=== PATIENT | female | born 1990 | race Caucasian/White ===

== ENCOUNTER 2021-10-31 08:14 | Outpatient (CLI) | payer MEDICARE, SELFPAY ==
--- NOTE | ~2021-10-31 | US_ITS ---
US abdomen complete DATE: 10/31/2021 09:37 INDICATION: Epigastric abdominal pain TECHNIQUE: Real-time imaging, Doppler analysis of the abdomen COMPARISON: None FINDINGS: No hepatic or pancreatic space-occupying mass lesion is detected. Normal hepatopedal portal venous flow direction. There are numerous filling defects in the dependent aspect of the gallbladder with posterior shadowin g consistent with cholelithiasis. No gallbladder wall thickening. Negative sonographic Hare's sign. The common bile duct measures 4 mm, normal. Normal caliber of the abdominal aorta. The inferior vena cava is unremarkable. The kidneys measure approximately 11 cm length. No renal mass lesion or hydronephrosis. Normal splenic size. IMPRESSION: Cholelithiasis Reviewed, dictated and finalized at Location [facility]. Reviewed, dictated and finalized at location B. ENTARY ASSISTANT TEACHER IMPRESSION: Cholelithiasis
== END 2021-10-31 08:15 | disposition home or self-care (01) ==
PROVIDERS: PCP Family Medicine; Visit Provider Family Medicine
DX: R10.13 Epigastric pain (principal); R14.0 Abdominal distension (gaseous); K80.20 Calculus of gallbladder without cholecystitis without obstruction
CPT/HCPCS: 76700

== ENCOUNTER 2021-11-23 08:00 | Outpatient (CLI) | payer MEDICARE, SELFPAY ==
[2021-11-23 08:58] LABS: Alanine Aminotransferase 14 U/L (4-35); Albumin Level 4.1 g/dL (3.5-5.1); Alkaline Phosphatase 77 U/L (38-126); Amylase 97 U/L (30-110); Aspartate Amino Transferase 22 U/L (14-36); Bilirubin,Total 0.3 mg/dL (0.2-1.3); Lipase 78 U/L (23-300)
== END 2021-11-23 08:01 | disposition home or self-care (01) ==
LOC: ANHSURGERY 08:04
PROVIDERS: PCP Family Medicine; Visit Provider Surgery
DX: Z01.818 Encounter for other preprocedural examination (principal); K80.20 Calculus of gallbladder without cholecystitis without obstruction
CPT/HCPCS: 36415; 80076; 82150; 83690; 86850; 86900; 86901

== ENCOUNTER 2021-11-27 00:47 | Day surgery (SDC) | payer MEDICARE, SELFPAY ==
[2021-11-20 14:34] VITALS: BMI 19.0
--- NOTE | 2021-11-20 14:43 | SUR.PREOP ---
Report to the Outpatient Waiting Room, entrance under the green pavilion located off [facility], at time _1000 on date _11/27/21 . OR Time: _1200 . - You and your visitor will be asked a series of questions to screen for COVID 19 for your protection. - A mask is required within the hospital. Preoperative COVID Testing Requirements: No COVID Test needed if: (proof is required; if not received patient will have Rapid Test prior to entry) - Patient has received COVID Vaccine at least 14 days prior to procedure date or - Patient has positive COVID test result within last 90 days of surgery date. COVID Test needed if above criteria is not met If not COVID vaccinated a COVID test must be conducted within 72 hours of surgery and patient is asked to isolate self from time of testing until procedure. You will go to the [facility] for your COVID testing. The [facility] site is located at the corner of [address] [facility]. You will only be called if COVID results are positive and your surgeon may reschedule your elective surgery date. Patients may have clear liquids (water, carbonated beverages, clear teas, apple juice) until 3 hours prior to surgery with a maximum of 20 ounces. - No food from midnight until time of surgery - Infants may have breast milk until 4 hours before surgery, infant formula 6 hours prior to surgery. - Children will be allowed to drink immediately following surgery. If applicable, please bring a bottle or sippy cup to assist with drinking. Juice, water, soda, and popsicles are readily available. For infants on formula, please bring formula the day of surgery. Pacifiers are allowed. Take the following medications with a SIP of water the morning of surgery: ___sertaline,venlafexine,methylphenidate Medications to discontinue per physician ___vitamin Date to take last dose__11/24/21 Please no make-up, nail colombian, hairspray, perfume, deodorant, or body powder the day of surgery. No jewelry (including any body piercings) or valuables the day of surgery, leave them at home. Please take a shower or bath the night before, or the morning of, surgery with an antibacterial soap. Wear comfortable, loose fitting clothing. Children are encouraged to wear pajamas. - Jewelry must be removed prior to entering the operating room. Rings and piercings that are not removed may be cut off. - The hospital will not accept responsibility for valuables. HIBICLENS SHOWER AM OF SURGERY - Please leave all valuables, including medications, at home the day of surgery. If you are going home after surgery, a licensed flatbed truck driver must drive you home. - NO public transportation without another adult. - We recommend that an adult stay with you for 24 hours following discharge. - We also recommend that you do not drive, make important decision, drink alcoholic beverages, or take any drugs that were not prescribed by your health care provider for at least 24 hours after your discharge time. For Pediatric surgeries, we recommend two adults accompany the child home (only one inside the building at this time). One visitor will be allowed to accompany the patient into the hospital. Patients visitor will be instructed to remain with patient at all times or leave the building. We will allow the visitor to come back to the postoperative area when patient is ready. Follow any additional instructions given to you from your surgeon. Telephone instructions given to samanta vargas_and asked if any additional questions and then verbalized understanding. Patient advised to call surgeon office or pre surgery nurse liaison [phone] if any additional questions.
[2021-11-27] VITALS (8 sets, daily range): BP systolic 99–121; BP diastolic 51–81; PULSE 66–90; RESP 12–16; TEMP 36.3–37.4; O2SAT 99–100
--- NOTE | 2021-11-27 07:58 | P.PNAN_ITS ---
Anes - Initial Pre Proc Eval Procedure: Operation Date: 11/27/21 12:00 Proposed Procedures p Laparoscopic Cholecystectomy, Possible Open - Bhupendra Nelson DO Date/Time: 11/27/21 07:58 Surgeon: Bhupendra Nelson DO Pre Op Diagnosis: Symptomatic Choleithiasis Patient Data Age: 31 Gender: F Height: 1.73 m Weight: 56.81 kg Allergies Allergy/AdvReac Type Severity Reaction Status Date / Time No Known Allergies Allergy Verified 11/27/21 10:17 Home Medications Medication Instructions Recorded Confirmed Type benztropine 0.5 mg tablet 0.5 mg PO DAILY 01/24/21 11/27/21 History methylphenidate HCl 10 mg tablet 10 mg PO BID 01/24/21 11/27/21 History sertraline 100 mg tablet 100 mg PO DAILY 01/24/21 11/27/21 History trazodone 150 mg tablet 150 mg PO QHS 01/24/21 11/27/21 History venlafaxine 75 mg tablet 75 mg PO BID 01/24/21 11/27/21 History esomeprazole magnesium 40 mg 40 mg PO DAILY #90 cap 09/06/21 11/27/21 Rx capsule,delayed release [id number]-lutein 1 tablet PO DAILY 11/20/21 11/27/21 History [Centrum Silver Women] Patient hx anesthesia problems: none Family hx anesthesia problems: none Results Review: All pre-operative results and documents have been reviewed as part of the pre-operative evaluation. [facility] Past Medical History Medical History (Updated 11/27/21 @ 11:14 by Zacarias Lazaro DO) Anxiety GERD (gastroesophageal reflux disease) High cholesterol Surgical History Surgical History [place] teeth extracted Family History Family History Father Alcoholism Cancer Depression Cerebrovascular accident Mother Hypertension Sibling Depression Grandparent Cancer Grandparent Cancer Diabetes mellitus Depression Social History Social History Smoking status: Never smoker Alcohol intake: current Substance use: current Other substance usage details: hemp gummies,weekly Living arrangements: with family Gender identity (if verbalized by the patient): Female Spiritual care concerns: No Anes - Eval Final PreProcedure Day of Procedure 11/27/21 07:58 Patient weight: thin Heart: regular rate and rhythm Lungs: clear to auscultation and normal air movement Airway: Mallampati scale class II Neurological: alert and oriented Last oral intake: >/= 8 hours ASA classification: II Emergent: no Anesthetic plan: proceed Anesthesia type and monitoring: general ETT and standard monitoring Results Review: All pre-operative results and documents have been reviewed as part of the pre-operative evaluation. Informed Consent: The patient's anesthetic plan and its attendant risks and benefits were discussed with the patient/family/POA. Questions were solicited and answers provided to the satisfaction of the patient/family/POA.
[2021-11-27] MEDS: ACETAMINOPHEN 500 MG TABLET 1000 MG PO (10:27)
[2021-11-27] MEDS: LACTATED RINGERS 1,000 ML 30 ML IV CONT ×2 (10:56→12:37)
[2021-11-27] MEDS: KETOROLAC 15 MG/ML VIAL (*BKC) IV PUSH (10:57)
--- NOTE | 2021-11-27 11:31 | WPDHPUPDATE1 ---
History and Physical Update Update Date/Time: 11/27/21 11:31 History and Physical has been reviewed, including an updated exam of the patient. There are NO changes in the patient's condition. Risks, benefits, and alternatives have been discussed and questions answered. Patient agrees to proceed with procedure.
[2021-11-27] MEDS: ceFAZolin 2 GM/D5W 50 ML 2 GM/50 ML BAG IVPB (11:49)
[2021-11-27] MEDS: BUPIVACAINE/EPINEPHRINE 0.25% 10 ML VIAL 30 ML INFILTRATE (12:12)
--- NOTE | 2021-11-27 12:30 | W.PM.PROC2 ---
Procedure Note - Detailed Date of Procedure 11/27/21 Pre-op Diagnosis Symptomatic Choleithiasis Post-op Diagnosis same Procedure Performed Laparoscopic cholecystectomy Surgeon Bhupendra Nelson, DO Anesthesia general and local (0.5% bupivacaine) Indications This is a 31-year-old woman who presents with intermittent upper abdominal pain that started about 4 months ago. She has continued to have these episodes of pain after eating. Gallbladder ultrasound showed evidence of cholelithiasis. Discussions were made with the patient about treatment options and decision was made to proceed with laparoscopic cholecystectomy, possible open. Findings Laparoscopic cholecystectomy was performed. The patient's gallbladder appeared grossly normal. There were no adhesions or signs of acute cholecystitis. The cystic duct appeared normal in size. The gallbladder was removed and sent to the lab for pathology. Description of Procedure Procedure as well as risks, benefits, and alternatives were discussed with patient. Written consent was obtained and placed in chart prior to procedure. The patient was brought back to surgical suite. Patient was placed in supine position on operating table. Time-out was done to confirm patient and procedure. Patient was then intubated by the anesthesia department. Abdomen was prepped and draped in sterile fashion using chlorhexidine prep. 0.5% bupivacaine with epinephrine was infiltrated at each site of incision. An 11 millimeter vertical incision was made at the inferior portion of the umbilicus using a 15 blade scalpel. Blunt dissection was carried down to the linea alba. The linea alba was then incised using a 15 blade scalpel. The peritoneum was then bluntly entered. An 11 millimeter trocar was inserted and carbon dioxide insufflation was used to create a pneumoperitoneum. The camera was inserted and the abdomen was inspected. The patient was placed in reverse Trendelenberg position and rotated slightly to the left. A 5 millimeter incision was made in the epigastric region, and a 5 millimeter trocar was inserted under direct visualization. Two 5 millimeter incisions were made in the right upper quadrant, and two 5 millimeter trocars were inserted under direct visualization. The gallbladder was identified and grasped at the fundus and retracted superiorly. It was then grasped at the infundibulum retracted laterally. Careful dissection around the neck of the gallbladder was performed using blunt dissection with a [place] grasper and hook electrocautery. The cystic duct was identified, and a window was created behind it. The cystic artery was also identified and a window was created behind it. The critical view of safety was identified, visualizing the cystic duct running directly into the neck of the gallbladder, and the cystic artery running directly into the wall of the gallbladder. A 5 millimeter clip buttonholer was then used to place 2 clips proximally and 1 clip distally on both the cystic duct and cystic artery. They were then both transected using endoscopic scissors. Once safely away from the marjan hepatitis, the gallbladder was dissected free from the liver bed using hook electrocautery. Hemostasis was achieved along the way. The gallbladder was removed completely and then removed through the umbilical port. The liver bed was then inspected. Hemostasis appeared adequate, and our clips appeared secure. The area was gently irrigated with sterile saline. No other abnormalities were seen. The patient was flattened out in bed, and 1 final inspection was made around the abdominal cavity. The ports were then removed under direct visualization, the camera was removed, and the pneumoperitoneum was released. The fascia of the umbilical incision was approximated using an 0 Vicryl oxgwna-[id number] suture. The skin of the incisions was approximated using 4-0 Monocryl subcuticular sutures. Exofin glue was applied on top. The p
== END 2021-11-27 14:40 | disposition home or self-care (01) ==
PROVIDERS: PCP Family Medicine; Visit Provider Surgery
PROC: 0FT44ZZ Resection of Gallbladder, Percutaneous Endoscopic Approach (ICD-10-PCS; CPT 47562; principal; 2021-11-27 12:00)
DX: K80.10 Calculus of gallbladder with chronic cholecystitis without obstruction (principal); K21.9 Gastro-esophageal reflux disease without esophagitis; J45.909 Unspecified asthma, uncomplicated; E78.00 Pure hypercholesterolemia, unspecified; F41.9 Anxiety disorder, unspecified
CPT/HCPCS: 47562; 36415; 80076; 82150; 83690; 86850; 86900; 86901; 88304; A9270; J0690; J1100; J1170; J1885; J2250; J2405; J2704; J2710; J3010; J7030; J7120

== ENCOUNTER 2022-06-25 00:14 | Day surgery (SDC) | payer MEDICARE, SELFPAY ==
[2022-06-07 13:48] VITALS: BMI 22.1
[2022-06-25 12:32] VITALS: BP 111/74; PULSE 84; RESP 18; TEMP 36.8; O2SAT 100; BMI 21.2
--- NOTE | 2022-06-25 12:34 | WPDANESEPPF ---
Anes - Initial Pre Proc Eval Procedure: Operation Date: 06/25/22 13:00 Proposed Procedures p Esophagogastroduodenoscopy & Colonoscopy - Sebastián Forman MD Date/Time: 06/25/22 12:34 Surgeon: Sebastián Forman MD Pre Op Diagnosis: GERD, IBS-constipation Patient Data Age: 32 Gender: F Height: 1.73 m Weight: 63.4 kg Last Vital Signs Temp 36.8 C 06/25/22 12:32 Pulse 84 06/25/22 12:32 Resp 18 06/25/22 12:32 BP 111/74 06/25/22 12:32 Pulse Ox 100 06/25/22 12:32 O2 Del Method Room Air 06/25/22 12:32 Allergies Allergy/AdvReac Type Severity Reaction Status Date / Time No Known Allergies Allergy Verified 06/25/22 12:29 Home Medications Medication Instructions Recorded Confirmed Type benztropine 0.5 mg tablet 0.5 mg PO DAILY 01/24/21 06/25/22 History methylphenidate HCl 10 mg tablet 10 mg PO BID 01/24/21 06/25/22 History (Ritalin) trazodone 150 mg tablet 150 mg PO QHS 01/24/21 06/25/22 History venlafaxine 75 mg tablet 75 mg PO BID 01/24/21 06/25/22 History sertraline 100 mg tablet (Zoloft) 200 mg PO DAILY 01/16/22 06/25/22 History linaclotide 290 mcg capsule 290 mcg PO QAM #90 caps 05/01/22 06/25/22 Rx (Linzess) omeprazole 40 mg capsule,delayed 40 mg PO DAILY #90 caps 06/13/22 06/25/22 Rx release sucralfate 1 gram tablet (Carafate) 1 g PO .COMPLEX #120 tabs 06/13/22 06/25/22 Rx Patient hx anesthesia problems: none Family hx anesthesia problems: none Results Review: All pre-operative results and documents have been reviewed as part of the pre-operative evaluation. [facility] Past Medical History Medical History Abdominal pain Anxiety GERD (gastroesophageal reflux disease) High cholesterol Irritable bowel syndrome with constipation Symptomatic cholelithiasis lap christen 11.27.21 Surgical History Surgical History History of laparoscopic cholecystectomy 11.27.21 [place] teeth extracted Family History Family History Father Alcoholism Cancer Depression Cerebrovascular accident Mother Hypertension Sibling Depression Grandparent Cancer Grandparent Cancer Diabetes mellitus Depression Social History Social History Smoking status: Never smoker Alcohol intake: current Substance use: never Substance use type: does not use Living arrangements: with family Gender identity (if verbalized by the patient): Female Spiritual care concerns: No Anes - Eval Final PreProcedure Day of Procedure 06/25/22 12:34 Patient weight: normal Heart: regular rate and rhythm Lungs: clear to auscultation Airway: Mallampati scale class II Neurological: alert and oriented Last oral intake: >/= 8 hours ASA classification: II Emergent: no Anesthesia type and monitoring: general GIVS and standard monitoring Results Review: All pre-operative results and documents have been reviewed as part of the pre-operative evaluation. Informed Consent: The patient's anesthetic plan and its attendant risks and benefits were discussed with the patient/family/POA. Questions were solicited and answers provided to the satisfaction of the patient/family/POA.
[2022-06-25] MEDS: LACTATED RINGERS 1,000 ML 150 ML IV CONT (12:35)
--- NOTE | 2022-06-25 12:40 | PM.HPGS ---
History of Present Illness History of Present Illness Consent: Risks, benefits, and alternatives have been discussed and questions answered. Patient agrees to proceed with procedure. Chief complaint: GERD, IBS-constipation Narrative: Sue Jaramillo is a 32 year old female here for egd and colonoscopy. She has chronic constipation but over last few months with bloating and gas pain in luq, diagnosed with IBS by primary, better with linzess, also started using omeprazole and carafate that helped some, no previous scopes. Review of Systems Constitutional: Constitutional: Denies headache(s) and Denies weakness Eyes: Eyes: Denies blurry vision ENT: Reports Normal hearing present, Denies headache(s) and Denies neck pain Cardiovascular: Cardiovascular: Denies chest pain and Denies dyspnea Respiratory: Respiratory: Denies dyspnea Gastrointestinal: Gastrointestinal: Reports no additional gastrointestinal complaints Genitourinary: Genitourinary: Denies dysuria Musculoskeletal: Musculoskeletal: Denies neck pain Integumentary/Breasts: Skin/Breast: Denies dry skin Neurologic: Reports Normal hearing present, Denies headache(s) and Denies weakness Psychiatric: Psychiatric: Denies anxiety Endocrine: Endocrine: Denies change in body appearance Hematologic/Lymphatic: Hematologic/Lymphatic: Denies easy bleeding Allergic/Immunologic: Allergic/Immunologic: Denies urticaria PMFSH Past Medical History Medical History Abdominal pain Anxiety GERD (gastroesophageal reflux disease) High cholesterol Irritable bowel syndrome with constipation Symptomatic cholelithiasis lap christen 11.27.21 Surgical History Surgical History History of laparoscopic cholecystectomy 11.27. [place] teeth extracted Family History Family History Father Alcoholism Cancer Depression Cerebrovascular accident Mother Hypertension Sibling Depression Grandparent Cancer Grandparent Cancer Diabetes mellitus Depression Social History Social History Smoking status: Never smoker Alcohol intake: current Substance use: never Substance use type: does not use Living arrangements: with family Gender identity (if verbalized by the patient): Female Spiritual care concerns: No Meds Home Medications and Allergies Home Medications Medication Instructions Recorded Confirmed Type benztropine 0.5 mg tablet 0.5 mg PO DAILY 01/24/21 06/25/22 History methylphenidate HCl 10 mg tablet 10 mg PO BID 01/24/21 06/25/22 History (Ritalin) trazodone 150 mg tablet 150 mg PO QHS 01/24/21 06/25/22 History venlafaxine 75 mg tablet 75 mg PO BID 01/24/21 06/25/22 History sertraline 100 mg tablet (Zoloft) 200 mg PO DAILY 01/16/22 06/25/22 History linaclotide 290 mcg capsule 290 mcg PO QAM #90 caps 05/01/22 06/25/22 Rx (Linzess) omeprazole 40 mg capsule,delayed 40 mg PO DAILY #90 caps 06/13/22 06/25/22 Rx release sucralfate 1 gram tablet (Carafate) 1 g PO .COMPLEX #120 tabs 06/13/22 06/25/22 Rx Allergies Allergy/AdvReac Type Severity Reaction Status Date / Time No Known Allergies Allergy Verified 06/25/22 12:29 Vital Signs Vital Signs - 24 hr 06/25/22 12:32 Temperature 98.2 F Pulse Rate 84 Respiratory Rate 18 Blood Pressure 111/74 Pulse Oximetry 100 Oxygen Delivery Room Air Exam Const: General: comfortable and no acute distress HENMT: General nose exam: Normal nares present Eyes: General: appearance normal, both eyes and all related structures Neck: Neck: no JVD Resp: Auscultation: clear to auscultation bilaterally Cardio: Rate: regular rate Rhythm: regular rhythm GI: Inspection: non-distended GI Palp: Yes Soft to palpation Skin: General skin exam: normal color Neuro: Genera
--- NOTE | 2022-06-25 12:54 | SUR.OPER ---
EGD: [id number] COLON: [id number]
[2022-06-25 13:15] VITALS: BP 106/65; PULSE 75; RESP 17; O2SAT 100
[2022-06-25 13:25] VITALS: BP 115/69; PULSE 71; RESP 17; O2SAT 100
[2022-06-25 13:35] VITALS: BP 113/77; PULSE 66; RESP 13; O2SAT 100
== END 2022-06-25 13:54 | disposition home or self-care (01) ==
PROVIDERS: PCP Family Medicine; Visit Provider Internal Medicine Gastroenterology
PROC: 0DJ08ZZ Inspection of Upper Intestinal Tract, Via Natural or Artificial Opening Endoscopic (ICD-10-PCS; CPT 43235; principal; 2022-06-25 13:00)
DX: Z12.11 Encounter for screening for malignant neoplasm of colon (principal); R10.13 Epigastric pain; K64.8 Other hemorrhoids; R14.0 Abdominal distension (gaseous); K29.50 Unspecified chronic gastritis without bleeding; K21.9 Gastro-esophageal reflux disease without esophagitis; K58.1 Irritable bowel syndrome with constipation; F41.9 Anxiety disorder, unspecified; E78.00 Pure hypercholesterolemia, unspecified; R10.12 Left upper quadrant pain
CPT/HCPCS: 43239; G0121; 88305; J2704; J7120

== ENCOUNTER 2022-07-01 15:07 | Emergency (ER) | payer MEDICARE, SELFPAY ==
--- NOTE | ~2022-07-01 | CT_ITS ---
EXAMINATION: CT abdomen pelvis w con DATE: 07/01/2022 19:10 INDICATION: epigastric pain TECHNIQUE: Computed tomography (CT) of the abdomen and pelvis was performed with 100 mL Omnipaque-350 intravenous contrast. Automated exposure control and iterative reconstruction technique were employe d. The dose-length product was 274.52 mGy-cm. COMPARISON: None. FINDINGS: Lower thorax: Unremarkable Liver: Normal. Biliary/Gallbladder: Gallbladder is normal. No bile duct dilation. Pancreas: No mass or duct dilation. Spleen: Normal. Adrenals:No mass. Kidneys: No mass, stone, or hydronephrosis. GI tract: Antral wall edema. No small or large bowel dilation. Appendix not confidently visualized du e to the paucity of abdominal fat and closely applied bowel loops in the right lower quadrant. No inf lammatory change detected in the right lower quadrant. Mesentery/Peritoneum: No ascites, mass, or free air. Retroperitoneum: No mass. Pelvis: Pelvic organs are within normal limits. Soft Tissues: Soft tissues and body wall unremarkable. Bones: No acute osseous finding. IMPRESSION: Antral gastritis. Otherwise no acute abdominopelvic process detected. Reviewed, dictated and finalized at location K.
[2022-07-01 15:09] VITALS: BP 138/81; PULSE 93; RESP 18; TEMP 36.7; O2SAT 100
[2022-07-01 15:32] LABS: Appearance Urine Clear (Clear); Bilirubin Urine Negative (Negative); Blood Urine Negative (Negative); Color Urine Yellow (Yellow); Glucose Urine UA Negative (Negative); Ketones Urine Negative (Negative); Leukocyte Esterase Ur Negative LEU/UL (Negative); Nitrate Urine Negative (Negative); Protein Urine Negative (Negative); Specific Grav Ur 1.015 (1.001-1.035); Urobilinogen Urine 0.2 mg/dL (<2.0); pH Urine 8.5 (5.0-9.0)
[2022-07-01 15:34] LABS: Add Urine Microscopic? NO
--- NOTE | 2022-07-01 15:39 | ED.GENADULT ---
HPI - General Adult General Chief complaint: Abdominal Pain Stated complaint: ABD Pain x2-3 weeks Time Seen by Provider: 07/01/22 15:14 History of Present Illness HPI narrative: 32-year-old female presenting to the emergency department for evaluation of multiple weeks of epigastric pain. Patient has had follow-up with GI and recently had an upper and lower no acute abnormalities. patient follows up with Dr. Dang for GI. Patient states that the pain began to worsen today. Patient describes epigastric pain. Since arriving to the emergency department patient states pain has begun to improve. Related Data Home Medications Medication Instructions Recorded Confirmed benztropine 0.5 mg tablet 0.5 mg PO DAILY 01/24/21 06/25/22 methylphenidate HCl 10 mg tablet 10 mg PO BID 01/24/21 06/25/22 (Ritalin) trazodone 150 mg tablet 150 mg PO QHS 01/24/21 06/25/22 venlafaxine 75 mg tablet 75 mg PO BID 01/24/21 06/25/22 sertraline 100 mg tablet (Zoloft) 200 mg PO DAILY 01/16/22 06/25/22 Allergies Allergy/AdvReac Type Severity Reaction Status Date / Time No Known Allergies Allergy Verified 06/25/22 12:29 Review of Systems Review of Systems: CONSTITUTIONAL: Denies fever, chills, or sweats. EYES: Denies visual changes, redness, or discharge. ENT: Denies rhinorrhea, congestion, sore throat, or otalgia. CARDIOVASCULAR: Denies chest pain, palpitations, or edema. RESPIRATORY: Denies cough or dyspnea. GASTROINTESTINAL: See HPI GENITOURINARY: Denies dysuria or hematuria. SKIN: Denies rash or itching. MUSCULOSKELETAL: Denies back pain, joint pain, or myalgia. NEUROLOGIC: Denies headache, numbness, or weakness. PSYCHIATRIC: Denies anxiety or depression. [facility] Past Medical History Medical History Abdominal pain Anxiety GERD (gastroesophageal reflux disease) High cholesterol Irritable bowel syndrome with constipation Symptomatic cholelithiasis lap christen 11.27.21 Surgical History Surgical History History of laparoscopic cholecystectomy 11.27.21 [place] teeth extracted Family History Family History Father Alcoholism Cancer Depression Cerebrovascular accident Mother Hypertension Sibling Depression Grandparent Cancer Grandparent Cancer Diabetes mellitus Depression Social History Social History Smoking status: Never smoker Alcohol intake: current Substance use: never Substance use type: does not use Gender identity (if verbalized by the patient): Female Spiritual care concerns: No Exam Narrative: APPEARANCE: Well appearing, no pain, no distress, well-nourished. HEAD: normocephalic, atraumatic. EYES: PERRLA/EOMI, conjunctivae clear. NOSE: Normal no drainage THROAT: Pharynx clear, no exudate. NECK: Supple. No adenopathy, no masses. RESPIRATORY: Airway patent, respirations nonlabored. Clear to auscultation bilaterally, no rales, rhonchi, wheezing. CARDIOVASCULAR: Regular rate and rhythm without murmurs rubs or gallops. ABDOMINAL: Epigastric tenderness to palpation MUSCULOSKELETAL: Moves all extremities. Strength/ROM intact, No edema, No calf tenderness. NEURO: Alert. Cranial nerves II through XII intact. Good gait. Good coordination SKIN: Warm, dry. Normal Color PSYCHIATRIC: Normal affect/mood. Course Course Emergency Course: Patient did have recent upper and lower scopes by GI. No gastritis was noticed on the EGD. Patient did have evidence of antral gastritis on CT scan today. Patient was treated with GI cocktail, Protonix and was instructed to continue taking her Carafate. Patient was also encouraged to seek follow-up with Dr. Dang again. All question concerns were addressed. Vital Signs Vital signs: Vital Signs Temperature 98.0 F 07/01/22 15:09 Pulse Rate 93 10
[2022-07-01 15:45] LABS: Basophils Percent Auto 0.4 % (0.2-1.2); Eosinophils Percent Auto 0.5 % (0-4.4); Hematocrit 36.4 % (37.0-47.0); Hemoglobin 11.9 g/dL (12.0-15.0); Immature Granulocyte Absolute 0.02 K/mm3 (0.00-0.031); Immature Granulocyte Percent A 0.4 % (0-0.5); Lymphocytes Absolute Auto 1.42 K/mm3 (0.9-3.2); Lymphocytes Percent Auto 25.5 % (18.3-44.2); Mean Corpuscular HGB Conc 32.7 g/dl (32-36); Mean Corpuscular Hemoglobin 30.1 pg (26-34); Mean Corpuscular Volume 91.9 fl (80-100); Mean Platelet Volume 10.6 fl (7.4-10.4); Monocytes Absolute Auto 0.4 K/mm3 (0.1-0.6); Monocytes Percent Auto 6.6 % (2.6-8.5); Neutrophils Absolute Auto 3.7 K/mm3 (1.3-6.7); Neutrophils Percent Auto 66.6 % (45.5-73.1); Platelet Count Result 181 k/mm3 (150-375); Red Blood Count 3.96 M/mm3 (4.2-5.4); Red Cell Distribution Width 12.4 % (11.5-14.5); White Blood Count 5.6 K/mm3 (4.5-10.0)
[2022-07-01] MEDS: BELLADONNA ALK/PHENOB ELIX 10 ML, MAG HYDROX/ALUMINUM HYD/SIMETH 30 ML, LIDOCAINE HCL 2... PO (15:45)
[2022-07-01 15:56] LABS: Alanine Aminotransferase 18 U/L (6-35); Albumin Level 4.2 g/dL (3.5-5.1); Alkaline Phosphatase 65 U/L (38-126); Anion Gap 6 mmol/L (8-16); Aspartate Amino Transferase 24 U/L (14-36); Bilirubin,Total 0.3 mg/dL (0.2-1.3); Blood Urea Nitrogen 11 mg/dL (7-17); Calcium 8.5 mg/dL (8.4-10.2); Carbon Dioxide 29 mmol/L (22-30); Chloride 103 mmol/L (98-107); Estimated CRCL calculation 116 ml/min; Estimated Glomerular Filt Rate > 60; Glucose 107 mg/dL (65-110); Lipase 56 U/L (23-300); Sodium 138 mmol/L (137-145)
[2022-07-01] MEDS: MORPHINE SULFATE (*CRX) 2 MG/ML INJ IV PUSH (18:40)
[2022-07-01] MEDS: PANTOPRAZOLE SODIUM IV 40 MG VIAL IV PUSH (20:24)
[2022-07-01 20:27] VITALS: BP 117/80; PULSE 76; RESP 16; O2SAT 100
== END 2022-07-01 20:39 | disposition home or self-care (01) ==
PROVIDERS: Emergency Provider Emergency Medicine; PCP Family Medicine
DX: K29.70 Gastritis, unspecified, without bleeding (principal); F41.9 Anxiety disorder, unspecified
CPT/HCPCS: 36415; 74177; 80053; 81003; 81025; 83690; 85025; 96374; 96375; 99284; A9270; C9113; J2270; Q9967